=== PATIENT | female | born 1970 | race Hispanic/Latino ===

== ENCOUNTER 2017-08-01 04:36 | Emergency (ER) | payer BC ==
[2017-08-01 06:25] LABS: Basophils % (Auto) 0.4 % (0.0-1.8); Eosinophils % (Auto) 0.5 % (0.0-4.3); Hematocrit 36.8 % (30.3-42.9); Hemoglobin 12.7 gm/dl (10.1-14.3); Lymphocytes # (Auto) 0.9 K/mm3 (1.2-5.4); Lymphocytes % (Auto) 12.8 % (13.4-35.0); Mean Corpuscular HGB Conc 34 % (30-34); Mean Corpuscular Hemoglobin 33 pg (28-32); Mean Corpuscular Volume 94 fl (79-97); Monocytes # (Auto) 0.3 K/mm3 (0.0-0.8); Monocytes % (Auto) 4.4 % (0.0-7.3); Platelet Count 275 K/mm3 (140-440); Red Blood Count 3.91 M/mm3 (3.65-5.03); Red Cell Distribution Width 12.9 % (13.2-15.2)
[2017-08-01 06:41] LABS: Alanine Aminotransferase 10 units/L (7-56); Albumin 4.1 g/dL (3.9-5); BUN/Creatinine Ratio 10; Blood Urea Nitrogen 6 mg/dL (7-17); Calcium 8.3 mg/dL (8.4-10.2); Hemolysis Index 4; Lipase 32 units/L (13-60)
[2017-08-01] MEDS ORDERED: NACL 0.9% 1000 ML 1,000 ML IV ONE ×2 (06:42→08:06)
[2017-08-01] MEDS ORDERED: BENADRYL IV ONE (06:42)
[2017-08-01] MEDS ORDERED: REGLAN IV ONE (06:42)
[2017-08-01] MEDS ORDERED: ZOFRAN IV ONE ×2 (06:42→13:01)
[2017-08-01] MEDS ORDERED: TORADOL IV ONE (06:46)
--- NOTE | 2017-08-01 06:48 | Emergency Department Report ---
ED Headache HPI - General Chief Complaint: Abdominal Pain Stated Complaint: HEADACHE/N/V Time Seen by Provider: 08/01/17 06:20 Source: patient Exam Limitations: no limitations - History of Present Illness Initial Comments: 46-year-old female with a past medical history of arthritis and GERD presents to the hospital complaining of headache and fevers for the last 5 days. Headache is global and patient complaints of bilateral ear pain left. The right , nausea, vomiting, and by mouth intolerance. Patient was seen at [facility] ED yesterday for the same symptoms. She is prescribed Fiorcett and Zofran to take home (pt has not yet filled the med script). As per her discharge paperwork patient had lab work, urine, urine , and a CT head without contrast. Discharge diagnosis headache without cause and nausea and vomiting. Patient reports a fever 101 at the beginning of her illness. No sick contacts or recent travel reported Allergies/Adverse Reactions: Allergies aspirin Allergy (Verified 08/01/17 05:37) Anaphylaxis Home Medications: Ambulatory Orders HYDROcodone/APAP 5-325 [Oz[place] 5/325] 1 each PO Q6HR PRN #15 tablet 08/01/17 Ibuprofen [Motrin] 800 mg PO Q8HR PRN #30 tablet 08/01/17 ED Review of Systems ROS: Stated complaint: HEADACHE/N/V Other details as noted in HPI Comment: All other systems reviewed and negative ED Past Medical Hx - Past Medical History Previous Medical History?: Yes Hx GERD: Yes Hx Arthritis: Yes - Social History Smoking Status: Never Smoker Substance Use Type: None - Medications Home Medications: Home Medications Medication Instructions Recorded Confirmed Last Taken Type HYDROcodone/APAP 5-325 [[place] 1 each PO Q6HR PRN #15 tablet 08/01/17 Unknown Rx 5/325] Ibuprofen [Motrin] 800 mg PO Q8HR PRN #30 tablet 08/01/17 Unknown Rx ED Physical Exam - General Limitations: No Limitations - Other Other exam information: General: No limitations, patient is alert in no acute distress Head exam: Atraumatic, normocephalic Eyes exam: Normal appearance, pupils equal and reactive to light, extraocular movements intact ENT: Moist mucous membrane, left TM landmarks distorted, no light reflex. Right TM appears normal Neck exam: Normal inspection, full range of motion, mild neck pain reported no meningismus or stiffness. Respiratory exam: Clear to auscultation bilateral, no wheezes, rales, crackles Cardiovascular: Normal rate and rhythm Abdomen: Soft, nondistended, and mild suprapubic tenderness, with normal bowel sounds, no rebound, or guarding. Vomitus at the bedside Extremity: Full range of motion normal inspection no deformity Back: Normal Inspection, full range of motion, no tenderness Neurologic: Alert, oriented x3, cranial nerves intact, no motor or sensory deficit Psychiatric: normal affect, normal mood Skin: Warm, dry, intact ED Course Vital Signs 08/01/17 08/01/17 08/01/17 05:29 05:37 05:58 Temperature 99.1 F 99.1 F Pulse Rate 66 66 Respiratory 20 20 Rate Blood Pressure 129/68 129/68 Blood Pressure 129/68 [Left] O2 Sat by Pulse 99 99 Oximetry 08/01/17 08/01/17 08/01/17 07:58 11:46 13:31 Temperature 98.0 F Pulse Rate 74 Respiratory 16 16 16 Rate Blood Pressure Blood Pressure 112/60 [Left] O2 Sat by Pulse 98 Oximetry - Consultations Consultation #1: 08/01/17 13:03 confirm with [facility] that ct head was no acute findings. (pt informed that this was done and gave permission) ED Medical Decision Making - Lab Data Result diagrams: 08/01/17 06:11 08/01/17 06:11 Lab Results 08/01/17 08/01/17 08/01/17 Range/Units 06:11 06:11 08:46 WBC 7.3 (4.5-11.0) K/mm3 RBC 3.91 (3.65-5.03) M/mm3 Hgb 12.7 (10.1-14.3) gm/dl Hct 36.8 (30.3-42.9) % MCV 94 (79-97) fl MCH 33 H (28-32) pg MCHC 34 (30-34) % RDW 12.9 L (13.2-15.2) % Plt Count 275 (140-440) K/mm3 Lymph % (Auto) 12.8 L (13.4-35.0) % [place] % (Auto) 4.4 (0.0-7.3) % Eos % (Auto) 0.5 (0.0-4.3) % Baso % (Auto) 0.4 (0.0-1.8) % Lymph # 0.9 L (1.2-5.4) K/mm3 [place] # 0.3 (0.0-0.8) K/mm3 Eos # 0.0 (0.0-0.4) K/mm3 Baso # 0.0 (0.0-0.1) K/mm3 Seg Neutrophils % 81.9 H (40.0-70.0) % Seg Neutrophils # 6.0 (1.8-7.7) K/mm3 Sodium 134 L (137-145) mmol/L Potassium 3.7 (3.6-5.0) mmol/L Chloride 98.3 (98-107) mmol/L Carbon Dioxide 23 (22-30) mmol/L Anion Gap 16 mmol/L BUN 6 L (7-17) mg/dL Creatinine 0.6 L (0.7-1.2) mg/dL Estimated GFR > 60 ml/min BUN/Creatinine Ratio 10 % Glucose 122 H (65-100) mg/dL Calcium 8.3 L (8.4-10.2) mg/dL Total Bilirubin 0.40 (0.1-1.2) mg/dL AST 14 (5-40) units/L ALT 10 (7-56) units/L Alkaline Phosphatase 52 (35-129) units/L Total Protein 7.3 (6.3-8.2) g/dL Albumin 4.1 (3.9-5) g/dL Albumin/Globulin Ratio 1.3 % Lipase 32 (13-60) units/L Urine Color Yellow (Yellow) Urine Turbidity Clear (Clear) Urine pH 7.0 (5.0-7.0) Ur Specific [place] 1.018 (1.003-1.030) Urine Protein <15 mg/dl (Negative) mg/dL Urine Glucose (UA) Neg (Negative) mg/dL Urine Ketones 20 (Negative) mg/dL Urine Blood Neg (Negative) Urine Nitrite Neg (Negative) Urine Bilirubin Neg (Negative) Urine Urobilinogen 2.0 (<2.0) mg/dL Ur Leukocyte Esterase Neg (Negative) Urine WBC (Auto) 2.0 (0.0-6.0) /HPF Urine RBC (Auto) 3.0 (0.0-6.0) /HPF U Epithel Cells (Auto) 2.0 (0-13.0) /HPF Urine Bacteria (Auto) 1+ (Negative) /HPF Urine Mucus 2+ /HPF Urine HCG, Qual Negative (Negative) - Medical Decision Making headache/left ear pain + left ear infection with global coronado no meningismus Labs unremarkable Recent CT unremarkable Patient encouraged to fill her meds and take either Fioricet or Oz[place] for pain and continue Zofran as needed for nausea or vomiting In the ED patient received Reglan, Benadryl, Zofran, morphine, and Augmentin with improvement in symptoms ENT referral and follow-up encouraged - Differential Diagnosis viral meningitis, viral syndrome, otitis media, gastroenteritis Critical Care Time: No Critical care attestation.: If time is entered above; I have spent that time in minutes in the direct care of this critically ill patient, excluding procedure time. ED Disposition Clinical Impression: Headache, Vomiting Otitis media Qualifiers: Chronicity: acute Laterality: left Disposition: TO HOME OR SELFCARE Is pt being admited?: No Does the pt Need Aspirin: No Condition: Stable Instructions: Otitis Media (ED), Acute Headache (ED), Acute Nausea and Vomiting (ED) Additional Instructions: Take the medication as prescribed. Take the Fioricet or Ozark for pain. Take Zofran as prescribed. Follow-up with the ear nose and throat doctor for further management. Return is symptoms worsen as indicated by your discharge instructions Prescriptions: HYDROcodone/APAP 5-325 [[place] 5/325] 1 each PO Q6HR PRN #15 tablet PRN Reason: Pain Ibuprofen [Motrin] 800 mg PO Q8HR PRN #30 tablet PRN Reason: Pain Referrals: SOLOMON ORONA MD [Staff Physician] - 3-5 Days (Primary care doctor ) JAUN KRUEGER MD [Staff Physician] - 3-5 Days (ENT doctor ) TORITO BENNETT MD [Staff Physician] - 3-5 Days (ENT doctor ) Time of Disposition: 14:03
[2017-08-01 09:33] LABS: Bacteria,Urine 1+ /HPF (Negative); Bilirubin,Urine NEG (Negative); Blood,Urine NEG (Negative); Color,Urine Yellow (Yellow); Mucus,Urine 2+ /HPF; Protein,Urine <15 mg/dL mg/dL (Negative)
[2017-08-01 09:34] LABS: HCG Qualitative,Urine Negative (Negative)
[2017-08-01 11:47] VITALS: BP 112/60
[2017-08-01] MEDS ORDERED: MORPHINE IV ONE (13:01)
[2017-08-01] MEDS ORDERED: AUGMENTIN 875 MG PO ONE (13:01)
== END 2017-08-01 14:30 | disposition home or self-care (01) ==
LOC: ED 04:36
DX: H66.92 Otitis media, unspecified, left ear (principal); R51 Headache; R11.10 Vomiting, unspecified; K21.9 Gastro-esophageal reflux disease without esophagitis
CPT/HCPCS: 36415; 80053; 81001; 81025; 83690; 85025; 96361; 96374; 96375; 96376; 99284; J1200; J1885; J2270; J2405; J2765; J7030